=== PATIENT | male | born 1960 | race Native Hawaiian/Other Pacific Islander ===

== ENCOUNTER 2018-10-23 22:53 | Emergency (ER) | payer BC ==
[2018-10-23 22:53] VITALS: BMI 25.0
[2018-10-23 23:06] VITALS: TEMP 98.1; O2SAT 100
--- NOTE | 2018-10-23 23:43 | ED PDOC ---
Arrival/HPI - General Chief Complaint: Trauma Time Seen by Provider: 10/23/18 22:56 Historian: Patient - History of Present Illness Narrative History of Present Illness (Text): 10/23/18 23:44 57 yo M reports twisting injury of the R foot, after he slipped and fell on the snow this AM. Patient now complains of pain, swelling and bruising; can bear weight on ankle but with pain. Otherwise: (-) knee pain, (-) other injury, (-) head injury, (-) LOC, (-) other extremity or joint injury. PMD Ray Past Medical History - Infectious Disease Hx of Infectious Diseases: None - Tetanus Immunization Tetanus Immunization: Unknown - Past Medical History Past Medical History: No Previous - Pulmonary Hx Respiratory Disorders: No - Neurological Hx Neurological Disorder: No - HEENT Hx HEENT Disorder: No - Renal Hx Renal Disorder: No - Endocrine/Metabolic Hx Endocrine Disorders: No - Hematological/Oncological Hx Blood Disorders: No - Integumentary Hx Dermatological Disorder: No - Musculoskeletal/Rheumatological Hx Musculoskeletal Disorders: No - Gastrointestinal Hx Gastrointestinal Disorders: No - Genitourinary/Gynecological Hx Genitourinary Disorders: No - Psychiatric Hx Psychophysiologic Disorder: No Hx Substance Use: No - Past Surgical History Past Surgical History: No Previous - Anesthesia Hx Anesthesia: No - Suicidal Assessment Feels Threatened In Home Enviroment: No Family/Social History Family/Social History: No Known Family HX Smoking Status: Heavy Smoker > 10 Cigarettes Daily Hx Alcohol Use: No Hx Substance Use: No Hx Substance Use Treatment: No Allergies/Home Meds Allergies/Adverse Reactions: Allergies No Known Allergies Allergy (Verified 10/23/18 23:05) Review of Systems - Review of Systems Constitutional: absent: Fatigue, Fevers Musculoskeletal: Arthralgias, Joint Swelling. absent: Back Pain, Neck Pain Skin: absent: Rash, Pruritis, Skin Lesions Physical Exam Vital Signs Temp Pulse Resp BP Pulse Ox 10/23/18 23:06 98.1 F 74 18 118/66 100 Temperature: Afebrile Blood Pressure: Normal Pulse: Regular Respiratory Rate: Normal Appearance: Positive for: Well-Appearing, Non-Toxic, Comfortable Pain Distress: Mild Mental Status: Positive for: Alert and Oriented X 3 - Systems Exam Head: Present: Atraumatic, Normocephalic Upper Extremity: Present: Normal Inspection, Normal ROM. No: Edema Lower Extremity: Present: NORMAL PULSES, Normal ROM, Tenderness (R foot : +tenderness, edema and ecchymosis to the dorsal lateral aspect of the foot), Neurovascularly Intact, Capillary Refill < 2 s. No: Temperature Abnormalties Neurological: Present: GCS=15, CN II-XII Intact, Speech Normal, Motor Func Grossly Intact, Normal Sensory Function Skin: Present: Warm, Dry, Normal Color. No: Rashes Psychiatric: Present: Alert, Oriented x 3, Normal Insight, Normal Concentration Medical Decision Making ED Course and Treatment: 10/23/18 23:48 Plan : - XR R foot / ankle - Naprosyn PO XR R foot / ankle : no fracture, no dislocation, as read by PA. X-ray results discussed with the patient in great detail. Diagnosis of sprain d/w the patient. Adi wrap applied. Patient instructed on crutch walking. Patient instructed to follow-up with pmd or ortho referral in 1-2 days without fail. Advised to take medication as prescribed. Rest, ice and elevate the joint. Return to the emergency room at any time for any new or worsening symptoms. Patient states he fully agrees with and understands discharge instructions. States that he agrees with the plan and disposition. Verbalized and repeated discharge instructions and plan. I have given the patient opportunity to ask any additional questions. - RAD Interpretation Radiology Orders: 10/23/18 23:10 ANKLE RIGHT 3 VIEWS ROUTINE [RAD] Stat FOOT RIGHT 3 VIEWS ROUTINE [RAD] Stat - PA / OCCUPATIONAL HYGIENIST / Resident Statement MD/DO has reviewed & agrees with the documentation as recorded. Disposition/Present on Arrival - Present on Arrival Any Indicators Present on Arrival: No History of DVT/PE: No History of Uncontrolled Diabetes: No Urinary Catheter: No History of Decub. Ulcer: No History Surgical Site Infection Following: None - Disposition Have Diagnosis and Disposition been Completed?: Yes Diagnosis: Sprain of foot, right Disposition: HOME/ ROUTINE Disposition Time: 00:00 Patient Plan: Discharge Patient Problems: Current Active Problems Problem Status Onset Sprain of foot, right Acute Condition: STABLE Discharge Instructions (ExitCare): Foot Sprain (DC) Additional Instructions: Thank you for letting us take care of you today. You were treated for R foot sprain. The emergency medical care you received today was directed at your acute symptoms. If you were prescribed any medication, please fill it and take as directed. It may take several days for your symptoms to resolve. Return to the Emergency Department if your symptoms worsen, do not improve, or if you have any other problems. Please contact your doctor or ortho referral in 2 days for re-evaluation and follow up. Bring any paperwork you were given at discharge with you along with any medications you are taking to your follow up visit. Our treatment cannot replace ongoing medical care by a primary care provider (PCP) outside of the emergency department. Thank you for allowing the [facility] team to be part of your care today. If you had an X-Ray : A Radiologist will review the ED reading if any change in treatment is needed we will contact you. Prescriptions: Naproxen 500 mg PO BID PRN #20 tablet PRN Reason: Pain, Moderate (4-7) Referrals: Chino Ray MD [Primary Care Provider] - Follow up with primary Joleen Raman MD [Staff Provider] - Follow up with primary Forms: [employer] (Tunisian), WORK NOTE
[2018-10-23] MEDS ORDERED: Naproxen 550 mg Tab PO STA (23:47)
[2018-10-24 00:35] VITALS: BP 121/82; PULSE 80; RESP 16
--- NOTE | 2018-10-24 08:46 | RAD ---
Date of service: 10/23/2018 PROCEDURE: Right Foot Radiographs. HISTORY: pain COMPARISON: None. FINDINGS: BONES: Normal. No fracture. JOINTS: Normal. SOFT TISSUES: Normal. OTHER FINDINGS: None. IMPRESSION: Normal right foot radiographs.
--- NOTE | 2018-10-24 08:48 | RAD ---
Date of service: 10/23/2018 PROCEDURE: Right Ankle Radiographs. HISTORY: pain COMPARISON: None available. FINDINGS: BONES: There is a separate ossicle thick density at the lateral base of the 5th metatarsal. This could represent an ununited secondary ossification center. Less likely this represents fracture. Correlate with clinical examination. No other fracture identified. JOINTS: Normal. No osteoarthritis. Ankle mortise maintained. Talar dome intact SOFT TISSUES: Normal. OTHER FINDINGS: None. IMPRESSION: Questionable ununited secondary ossification center versus acute fracture at base of 5th metatarsal. Correlate with clinical examination.
== END 2018-10-24 00:33 | disposition home or self-care (01) ==
LOC: ED 22:53
DX: S93.601A Unspecified sprain of right foot, initial encounter (principal); W00.0XXA Fall on same level due to ice and snow, initial encounter